=== PATIENT | male | born 1985 | race Caucasian/White ===

== ENCOUNTER 2019-03-31 12:33 | Emergency (ER) | payer OTHER ==
[2019-03-31] MEDS ORDERED: DILANTIN100 MG PO (12:53)
[2019-03-31 13:26] VITALS: BP 148/80
== END 2019-03-31 14:19 | disposition home or self-care (01) | DRG 159 ==
LOC: ED 12:33
PROC: 0CQ0XZZ Repair Upper Lip, External Approach (ICD-10-PCS; principal; 2019-03-31)
DX: S01.511A Laceration without foreign body of lip, initial encounter (principal); G40.909 Epilepsy, unspecified, not intractable, without status epilepticus; X99.9XXA Assault by unspecified sharp object, initial encounter; Y92.149 Unspecified place in prison as the place of occurrence of the external cause